=== PATIENT | male | born 1995 | race African-American/Black ===

== ENCOUNTER 2021-07-02 18:01 | Emergency (ER) | payer OTHER ==
[~2021-07-02] VITALS: Ht 170.2 cm; Wt 68.0 kg
[2021-07-02 20:02] VITALS: BP 122/67
== END 2021-07-02 21:12 | disposition home or self-care (01) ==
LOC: ER 18:04
DX: S06.0X0A Concussion without loss of consciousness, initial encounter (principal); S00.81XA Abrasion of other part of head, initial encounter; W11.XXXA Fall on and from ladder, initial encounter; Y93.89 Activity, other specified; Y92.89 Other specified places as the place of occurrence of the external cause; Y99.8 Other external cause status